=== PATIENT | female | born 1965 | race Caucasian/White ===

== ENCOUNTER 2018-03-12 11:42 | Day surgery (SDC) | payer OTHER ==
[2018-03-12] MEDS ORDERED: LIDOCAINE 2% (SDV) 5 ML INJ (12:34)
[2018-03-12] MEDS ORDERED: PROPOFOL 40 ML (12:34)
== END 2018-03-12 13:49 | disposition home or self-care (01) ==
LOC: GIL 11:42
DX: K29.50 Unspecified chronic gastritis without bleeding (principal); E66.9 Obesity, unspecified; Z68.41 Body mass index [BMI] 40.0-44.9, adult
CPT/HCPCS: 43239; 88305; 88312

== ENCOUNTER 2018-04-29 06:19 | Day surgery (SDC) | payer OTHER ==
[2018-04-29] MEDS ORDERED: PROPOFOL 40 ML (08:06)
[2018-04-29] MEDS ORDERED: LIDOCAINE 100 MG SYRINGE (08:06)
== END 2018-04-29 14:31 | disposition home or self-care (01) ==
LOC: GIL 06:19
DX: Z12.11 Encounter for screening for malignant neoplasm of colon (principal); K64.8 Other hemorrhoids; K57.30 Diverticulosis of large intestine without perforation or abscess without bleeding; E78.5 Hyperlipidemia, unspecified; E66.01 Morbid (severe) obesity due to excess calories; Z68.41 Body mass index [BMI] 40.0-44.9, adult
CPT/HCPCS: 45378